=== PATIENT | female | born 2000 ===

== ENCOUNTER 2022-07-17 14:30 | Outpatient (CLI) | payer MEDICAID ==
[2022-07-17 23:05] LABS: BACTERIAL VAGINOSIS DNA POSITIVE (NEGATIVE); CANDIDA GLABRATA DNA NEGATIVE (NEGATIVE); CANDIDA GROUP DNA NEGATIVE (NEGATIVE); CANDIDA KRUSEI DNA NEGATIVE (NEGATIVE); TRICHOMONAS VAGINALIS DNA NEGATIVE (NEGATIVE)
== END 2022-07-17 23:59 | disposition home or self-care (01) ==
LOC: LAB.WC 14:30
PROVIDERS: ATTEND Nurse Practitioner
DX: N89.8 Other specified noninflammatory disorders of vagina (principal)
CPT/HCPCS: 81514